=== PATIENT | female | born 1985 | race Caucasian/White ===

== ENCOUNTER 2019-01-10 20:31 | Inpatient (IN) ==
--- NOTE | 2019-01-10 21:17 | ED ---
History of Present Illness [place] [facility] Care Physician: No Primary Care Physician Chief Complaint: Contractions History of Present Illness: This 33 y/o female , EGA 38 2/7 wks present to [facility] with c/o ctxs. The ctxs started at 4 PM and have gotten stronger and closer together. +FM, No VB, No LOF. She has not had any probs during this . She has had PNC with Dr. Claros. Weeks Gestation:: 38 Para: 3 : 5 Review of Systems All other systems reviewed negative except as stated in HPI PMFSH - History History Provided By: Patient - Medical / Surgical Hx Neg / Unobtainable Medical Problems Denied: Yes Surgical History: No Previous Surgery - Social History I have reviewed the patient's Social History: Yes - Tobacco History Smoking Status: Never smoker - Alcohol History How Often Do You Have a Drink Containing Alcohol: Never - Substance Use History Substance History: No History of Abuse - Travel History History of Recent Travel: Yes (Went to [place] in October 2018) Recent Travel in the [facility] Within the Last 8 Weeks: No Recent Travel Out of the Country Within the Last 8 Weeks: Yes - Immunization History Tetanus Immunization: Unsure Medications and Allergies Allergies Allergy/AdvReac Type Severity Reaction Status Date / Time No Known Drug Allergies Allergy Unknown n/a Verified 01/10/19 21:04 Home Medications Medication Instructions Recorded Confirmed Type PNV cmb#95-ferrous fumarate-FA 1 tab PO DAILY 01/10/19 01/10/19 History [] Exam Vital signs: Vital Signs 01/10/19 20:50 01/10/19 20:54 Temperature 97.4 F L Pulse Rate 68 Respiratory Rate 16 Blood Pressure 127/82 Intake & Output 01/10/19 01/10/19 01/11/19 06:59 18:59 06:59 Weight 197 kg Narrative: GENERAL: Well-nourished, well-developed patient. SKIN: Warm and dry. HEAD: Normocephalic and atraumatic. EYES: No scleral icterus. No injection or drainage. ENT: No nasal drainage noted. Mucous membranes pink. Airway patent. NECK: Supple, trachea midline. No JVD. CARDIOVASCULAR: Regular rate and rhythm without murmurs, gallops, or rubs. RESPIRATORY: Breath sounds equal bilaterally. No accessory muscle use. ABDOMEN/GI: Abdomen soft, non-tender, bowel sounds present, no rebound, no guarding Gravid GENITOURINARY: External Genitalia: intact and normal in appearance BUS glands: [normal] Cervix: [post] Dilatation: [3-4] Effacement: [60] Station: [-2] Presentation: [vtx] Membranes: [intact] Uterine Contractions: [every 3-4 min] FHT's: Category: [1] Baseline: [130] Reactive: [Yes] Variability: [Mod] Decels: [None] +Accels EXTREMITIES: No cyanosis or edema. BACK: Nontender without obvious deformity. No CVA tenderness. NEUROLOGICAL: Awake and alert. Motor and sensory grossly within normal limits. Five out of 5 muscle strength in all muscle groups. Normal speech. Results - Labs Group B Strep: Negative Assessment and Plan - Diagnosis (1) Uterine contractions during Code(s): O62.2 - Other uterine inertia Status: Acute (2) Multigravida of advanced maternal age in third trimester Code(s): O09.523 - Supervision of elderly multigravida, third trimester Status : Acute (3) 38 weeks gestation of Code(s): Z3A.38 - 38 weeks gestation of Status: Acute - Plan Recheck cervix in 1-2 hrs 22:08- Cervix changed. Now 4/70/-2, mid position. Hx rapid labor. Would like to walk. Does not want epidural. FHTs Cat 1, reactive. Discussed with Dr. Cr who is squadron worker for Dr. Claros. Discharge Plan - Physicians Team ED Provider: Alice Bryant Primary Care Provider: Primary Care Physici,Taniya - Rxs /Orders / Referrals /Forms Prescriptions: No Action PNV cmb#95-ferrous fumarate-FA [] 28 mg iron- 800 mcg Tablet 1 tab PO DAILY - Discharge Instructions Print Language: Rwandan
[2019-01-10] MEDS ORDERED: fentaNYL Citrate Inj 100 MCG/2 ML Ampul IV.PUSH PRN ×2 (22:11)
[2019-01-10] MEDS ORDERED: Oxytocin 30 Units/500ml Premix 30 UNITS/500 ML BAG IV.SIG ONE (22:11)
[2019-01-10] MEDS ORDERED: Sod Chloride 0.9% Inj 1,000 ML IV.CONT PRN (22:11)
[2019-01-10] MEDS ORDERED: Sodium Chlor 0.9% Inj 500 ML IV.SIG PRN (22:11)
[2019-01-10] MEDS ORDERED: Naloxone Inj 0.4 MG/ML Vial IV.PUSH PRN (22:11)
--- NOTE | 2019-01-10 22:14 | P.HPOB ---
Patient Name: Joana Babcock Date of : 81 Patient Status: Inpatient Attending Provider: Nel Claros Date: 01/10/19 21:12 Initialization Date: 01/10/19 21:12 History of Present Illness Service: [facility] [place] Primary Care Physician: No Primary Care Physician Chief Complaint: Contractions History of Present Illness: This 33 y/o female , EGA 38 2/7 wks present to [facility] with c/o ctxs. The ctxs started at 4 PM and have gotten stronger and closer together. +FM, No VB, No LOF. She has not had any probs during this . She has had PNC with Dr. Claros. Weeks Gestation:: 38 Para: 3 : 5 Review of Systems All other systems reviewed negative except as stated in HPI PMFSH - History History Provided By: Patient - Medical / Surgical Hx Neg / Unobtainable Medical Problems Denied: Yes Surgical History: No Previous Surgery - Social History I have reviewed the patient's Social History: Yes - Tobacco History Smoking Status: Never smoker - Alcohol History How Often Do You Have a Drink Containing Alcohol: Never - Substance Use History Substance History: No History of Abuse - Travel History History of Recent Travel: Yes (Went to [place] in October 2018) Recent Travel in the [facility] Within the Last 8 Weeks: No Recent Travel Out of the Country Within the Last 8 Weeks: Yes - Immunization History Tetanus Immunization: Unsure Medications and Allergies Allergies Allergy/AdvReac Type Severity Reaction Status Date / Time No Known Drug Allergies Allergy Unknown n/a Verified 01/10/19 21:04 Home Medications Medication Instructions Recorded Confirmed Type PNV cmb#95-ferrous fumarate-FA 1 tab PO DAILY 01/10/19 01/10/19 History [] Exam Vital signs: Vital Signs 01/10/19 20:50 01/10/19 20:54 Temperature 97.4 F L Pulse Rate 68 Respiratory Rate 16 Blood Pressure 127/82 Intake & Output 01/10/19 01/10/19 01/11/19 06:59 18:59 06:59 Weight 197 kg Narrative: GENERAL: Well-nourished, well-developed patient. SKIN: Warm and dry. HEAD: Normocephalic and atraumatic. EYES: No scleral icterus. No injection or drainage. ENT: No nasal drainage noted. Mucous membranes pink. Airway patent. NECK: Supple, trachea midline. No JVD. CARDIOVASCULAR: Regular rate and rhythm without murmurs, gallops, or rubs. RESPIRATORY: Breath sounds equal bilaterally. No accessory muscle use. ABDOMEN/GI: Abdomen soft, non-tender, bowel sounds present, no rebound, no guarding Gravid GENITOURINARY: External Genitalia: intact and normal in appearance BUS glands: [normal] Cervix: [Mid] Dilatation: [4] Effacement: [70] Station: [-2] Presentation: [vtx] Membranes: [intact] Uterine Contractions: [every 2-4 min] FHT's: Category: [1] Baseline: [130] Reactive: [Yes] Variability: [Mod] Decels: [None] +Accels EXTREMITIES: No cyanosis or edema. BACK: Nontender without obvious deformity. No CVA tenderness. NEUROLOGICAL: Awake and alert. Motor and sensory grossly within normal limits. Five out of 5 muscle strength in all muscle groups. Normal speech. Results - Labs Group B Strep: Negative Assessment and Plan - Diagnosis (1) Uterine contractions during Code(s): O62.2 - Other uterine inertia Status: Acute (2) Multigravida of advanced maternal age in third trimester Code(s): O09.523 - Supervision of elderly multigravida, third trimester Status : Acute (3) 38 weeks gestation of Code(s): Z3A.38 - 38 weeks gestation of Status: Acute - Plan Admit for labor Discharge Plan - Physicians Team ED Provider: Alice Bryant Primary Care Provider: Primary Care Taniya Solares - Rxs /Orders / Referrals /Forms Prescriptions: No Action PNV cmb#95-ferrous fumarate-FA [] 28 mg iron- 800 mcg Tablet 1 tab PO DAILY - Discharge Instructions Print Language: Nepali
[2019-01-10] MEDS ORDERED: Citric Acid/Sodium Citrate Liq 30 ML UDC PO SCH (22:15)
[2019-01-10 22:44] LABS: Baso % (Auto) 0.4 % (0.0-2.0); Eos # (Auto) 0.1 th/mm3 (0.0-0.4); Eos % (Auto) 0.9 % (0.0-4.0); Hematocrit 37.5 % (35.0-46.0); Hemoglobin 12.8 gm/dL (11.6-15.3); Lymph # (Auto) 2.2 th/mm3 (1.0-4.8); Lymph % (Auto) 22.8 % (9.0-44.0); Mean Corpuscular Hemoglobin 28.5 pg (27.0-34.0); Mean Corpuscular Volume 83.8 fL (80.0-100.0); Mean Platelet Volume 10.4 fL (7.0-11.0); Mono # (Auto) 0.8 th/mm3 (0.0-0.9); Mono % (Auto) 7.8 % (0.0-8.0); Neut # (Auto) 6.6 th/mm3 (1.8-7.7); Neut % (Auto) 68.1 % (16.0-70.0); Platelet Count 186 th/mm3 (150-450); Red Blood Count 4.48 mil/mm3 (4.00-5.30); Red Cell Distribution Width 14.9 % (11.6-17.2); White Blood Count 9.7 th/mm3 (4.0-11.0)
[2019-01-10 22:51] LABS: Bacteria,Urine Rare /hpf; Bilirubin,Urine Negative (Negative); Clarity,Urine Hazy (Clear); Color,Urine Yellow (Yellw/Straw); Glucose,Urine (UA) Negative (Negative); Hyaline Casts,Urine 1 /lpf (0-3); Leukocyte Esterase,Urine Large (Negative); Nitrite,Urine Negative (Negative); Specific Gravity,Urine 1.005 (1.002-1.035); Squamous Epithelial Cell,Urine 10 /hpf (0-5)
[2019-01-11] MEDS ORDERED: Lidocaine 1% Inj 50 ML Vial ONE (00:33)
--- NOTE | 2019-01-11 02:41 | P.OBLABOR ---
Subjective Interval history: walking in her room with her family fourth child first at [place] no leaking or bleeding regular contractions Objective Vital Signs: Vital Signs - 8 hr 01/10/19 20:50 01/10/19 20:54 01/10/19 22:00 Temperature 97.4 F L Pulse Rate 68 Respiratory Rate 16 16 Blood Pressure 127/82 01/10/19 22:21 01/10/19 23:10 01/11/19 00:00 Temperature 97.8 F Pulse Rate 69 Respiratory Rate 16 16 Blood Pressure 123/72 01/11/19 01:00 01/11/19 01:30 Temperature Pulse Rate Respiratory Rate 16 16 Blood Pressure Objective: Pelvic Exam: %/02 efw 7 arom clear infant brought down carefully onto cervix strip category one Patient Started Active Labor: Yes Medical Induction of Labor: No Artificial Rupture of Membrane: Yes Artificial ROM Date: 01/11/19 Artificial ROM Time: 02:40 Assessment and Plan - Diagnosis (1) Multigravida of advanced maternal age in third trimester Code(s): O09.523 - Supervision of elderly multigravida, third trimester Status : Acute (2) 38 weeks gestation of Code(s): Z3A.38 - 38 weeks gestation of Status: Acute - Plan Recheck cervix in 1-2 hrs 22:08- Cervix changed. Now /-2, mid position. Hx rapid labor. Would like to walk. Does not want epidural. FHTs Cat 1, reactive. Discussed with Dr. Cr who is glue bone crusher for Dr. Claros. 01/11/19 2;40 am anticipate very soon
[2019-01-11] MEDS ORDERED: Benzocaine 20% Top Spray 60 ML Can TOPICAL PRN (03:12)
[2019-01-11] MEDS ORDERED: Oxytocin 30 Units/500ml Premix 30 UNITS/500 ML BAG IV.CONT PRN (03:12)
[2019-01-11] MEDS ORDERED: Bisacodyl 10 MG Supp RECTAL PRN (03:12)
[2019-01-11] MEDS ORDERED: Acetaminophen 325 MG Tablet PO PRN (03:12)
[2019-01-11] MEDS ORDERED: Zolpidem Tartrate 5 MG Tablet PO PRN (03:12)
[2019-01-11] MEDS ORDERED: Witch Hazel 50%/Glyderin 12.5% 40 Pad Jar RECTAL PRN (03:12)
[2019-01-11] MEDS ORDERED: Naloxone Inj 0.4 MG/ML Vial IV.PUSH PRN (03:12)
--- NOTE | 2019-01-11 03:12 | P.OBDELI ---
Weeks Gestation: 38 Patient Started Active Labor: Yes Medical Induction of Labor: No Artificial Rupture of Membrane: Yes Anesthesia: None Episiotomy: none Vaginal Delivery: Normal Presentation: Occiput anterior Nuchal Cord: None Delayed Cord Clamping (45 sec): Yes Placenta: Spontaneous delivery, Intact, 3 vessel cord Laceration: None Estimated blood loss (mL): 100 Infant: Male Male A Delivery Date: 01/11/19 Delivery Time: 03:12 score (1 min): 9 score (5 min): 9
[2019-01-11] MEDS: Senna/Docusate Sodium 8.6/50 MG Tablet PO SCH ×2 (08:57→20:14)
--- NOTE | 2019-01-11 09:35 | P.PNOB ---
Subjective Post day: 1 Interval history: doing well, scant vaginal bleeding , pain controlled Objective Vital Signs/I&O: Vital Signs 01/10/19 20:50 01/10/19 20:54 01/10/19 22:00 Temperature 97.4 F L Pulse Rate 68 Respiratory Rate 16 16 Blood Pressure 127/82 01/10/19 22:21 01/10/19 23:10 01/11/19 00:00 Temperature 97.8 F Pulse Rate 69 Respiratory Rate 16 16 Blood Pressure 123/72 01/11/19 01:00 01/11/19 01:30 01/11/19 02:38 Temperature Pulse Rate 67 Respiratory Rate 16 16 16 Blood Pressure 120/77 01/11/19 03:16 01/11/19 03:24 01/11/19 03:37 Temperature Pulse Rate 61 Respiratory Rate 18 18 Blood Pressure 137/76 01/11/19 03:40 01/11/19 04:37 01/11/19 08:00 Temperature 98.4 F 98.0 F Pulse Rate 57 L 57 L Respiratory Rate 18 16 Blood Pressure 121/73 105/59 L 101/61 Intake & Output 01/10/19 01/11/19 01/11/19 18:59 06:59 18:59 Weight 87.09 kg Other: Weight On Admission 87.09 kg Result Diagrams: 01/10/19 22:25 Objective Remarks: GENERAL: Well-nourished, well-developed patient. CARDIOVASCULAR: Regular rate and rhythm without murmurs, gallops, or rubs. RESPIRATORY: Breath sounds equal bilaterally. No accessory muscle use. ABDOMEN/GI: Abdomen soft, non-tender. Fundus: Firm, non-tender at umbilicus. GENITOURINARY: Light to moderate bleeding. EXTREMITIES: No cyanosis or edema, non-tender, without signs of DVT. Medications and IVs: Active Medications Acetaminophen (Tylenol) 650 mg PO Q4H PRN PRN Reason: PAIN SCALE 1 TO 2 Al Hydroxide/Mg Hydroxide (Milk Of Magnesia Liq) 30 ml PO Q12H PRN PRN Reason: Mild Constipation Benzocaine (Americaine 20% Top [place]) 1 spray TOPICAL Q4H PRN PRN Reason: For Perineum Discomfort Last Admin: 01/11/19 05:25 Dose: 1 spray Bisacodyl (Dulcolax Supp) 10 mg RECTAL DAILY PRN PRN Reason: SEVERE CONSITIPATION Citric Acid/Sodium Citrate (Sodium Citrate/Citric Acid Liq) 30 ml PO ROOM ATTENDANT [facility] Stop: 01/14/19 22:14 Diphtheria/Pertussis/Tetanus Vacc (Boostrix Vaccine Inj) 0.5 ml IM .ONCE ONE Stop: 01/11/19 16:01 Fentanyl Citrate (Fentanyl Inj) 50 mcg IV.PUSH Q1H PRN PRN Reason: Pain Scale 3 - 5 Fentanyl Citrate (Fentanyl Inj) 100 mcg IV.PUSH Q1H PRN PRN Reason: PAIN SCALE 6 TO 10 Lactated Ringer's (Lr 1000 Ml Inj) 1,000 mls @ 3,000 mls/hr IV.SIG UNSCH PRN PRN Reason: compromise or epidural Lactated Ringer's (Lr 1000 Ml Inj) 1,000 mls @ 125 mls/hr IV.CONT .Q8H [facility] Last Admin: 01/10/19 22:26 Dose: 125 mls/hr Sodium Chloride (Ns Inj) 1,000 mls @ 100 mls/hr IV.CONT .Q10H PRN PRN Reason: SEE LABEL COMMENTS Sodium Chloride (Ns Inj) 500 mls @ 1,000 mls/hr IV.SIG UNSCH PRN PRN Reason: SEE LABEL COMMENTS Oxytocin (Pitocin 30 Units/Ns 500 Ml Premix) 30 units in 500 mls @ 100 mls/hr IV.CONT UNSCH PRN PRN Reason: Heavy bleeding Ibuprofen (Motrin) 800 mg PO Q8H PRN PRN Reason: For Cramping Lactulose (Lactulose Liq) 30 ml PO DAILY PRN PRN Reason: SEVERE CONSITIPATION Lidocaine HCl (Xylocaine 1% Inj) 0.1 ml I-DERMAL PRN PRN PRN Reason: For IV start Stop: 01/13/19 22:10 Lidocaine HCl (Xylocaine 1% Inj) 10 ml INFILTRATN PRN PRN PRN Reason: For episiotomy repair Stop: 01/12/19 22:10 Measles/Mumps/Rubella Vaccine Live (M-M-R Ii Vaccine Inj) 0.5 ml SQ .ONCE ONE Stop: 01/11/19 16:01 Mineral Oil (Muri-Lube Oil) 10 ml TOPICAL PRN PRN PRN Reason: PRN perineal massage Naloxone HCl (Narcan Inj) 0.1 mg IV.PUSH Q2M PRN PRN Reason: for opiate reversal Naloxone HCl (Narcan Inj) 0.1 mg IV.PUSH Q2M PRN PRN Reason: for opiate reversal Ondansetron HCl (Zofran Inj) 4 mg IV.PUSH Q6H PRN PRN Reason: NAUSEA OR VOMITING Ondansetron HCl (Zofran Odt) 4 mg PO Q6H PRN PRN Reason: NAUSEA OR VOMITING Senna/Docusate Sodium (Joann-Colace) 1 tab PO BID [facility] Last Admin: 01/11/19 08:57 Dose: 1 tab Sennosides (Senokot) 17.2 mg PO Q12H PRN PRN Reason: Moderate Constipation Sodium Chloride (Ns Flush) 2 ml IV.FLUSH BID EDIS Sodium Chloride (Ns Flush) 2 ml IV.FLUSH PRN PRN PRN Reason: FLUSH AFTER USING IV ACCESS Witch Dorothy/Glycerin (Tucks Pads) 1 applicatio RECTAL QID PRN PRN Reason: HEMORRHOIDS Last Admin: 01/11/19 05:25 Dose: 1 applicatio Zolpidem Tartrate (Ambien) 5 mg PO HS PRN PRN Reason: SLEEP Assessment and Plan - Diagnosis (1) Multigravida of advanced maternal age in third trimester Code(s): O09.523 - Supervision of elderly multigravida, third trimester Status : Acute (2) 38 weeks gestation of Code(s): Z3A.38 - 38 weeks gestation of Status: Acute - Plan 33 yo s/p at 38w2d 1. PPD #0: AF, VSS, continue routine care, likely d/c home tomorrow - Male , does not desire circ.
[2019-01-11] MEDS ORDERED: Diphtheria/Tetanus/Pertussis Vaccine Inj 0.5 ML Syringe IM ONE (16:00)
[2019-01-11] MEDS ORDERED: Measles/Mumps/Rubella Vaccine Inj 0.5 ML Vial SQ ONE (16:00)
--- NOTE | 2019-01-12 05:15 | P.PNOB ---
Subjective Post day: 1 Interval history: no changes from yesterday Objective Vital Signs/I&O: Vital Signs 01/11/19 08:00 01/11/19 20:00 Temperature 98.0 F 98.1 F Pulse Rate 57 L 65 Respiratory Rate 16 18 Blood Pressure 101/61 116/72 Intake & Output 01/11/19 01/11/19 01/12/19 06:59 18:59 06:59 Weight 87.09 kg Other: Weight On Admission 87.09 kg Result Diagrams: 01/10/19 22:25 Objective Remarks: GENERAL: Well-nourished, well-developed patient. CARDIOVASCULAR: Regular rate and rhythm without murmurs, gallops, or rubs. RESPIRATORY: Breath sounds equal bilaterally. No accessory muscle use. ABDOMEN/GI: Abdomen soft, non-tender. Fundus: Firm, non-tender at umbilicus. GENITOURINARY: Light to moderate bleeding. EXTREMITIES: No cyanosis or edema, non-tender, without signs of DVT. Medications and IVs: Active Medications Acetaminophen (Tylenol) 650 mg PO Q4H PRN PRN Reason: PAIN SCALE 1 TO 2 Al Hydroxide/Mg Hydroxide (Milk Of Magnesia Liq) 30 ml PO Q12H PRN PRN Reason: Mild Constipation Benzocaine (Americaine 20% Top [place]) 1 spray TOPICAL Q4H PRN PRN Reason: For Perineum Discomfort Last Admin: 01/11/19 05:25 Dose: 1 spray Bisacodyl (Dulcolax Supp) 10 mg RECTAL DAILY PRN PRN Reason: SEVERE CONSITIPATION Citric Acid/Sodium Citrate (Sodium Citrate/Citric Acid Liq) 30 ml PO SCALE AGENT [facility] Stop: 01/14/19 22:14 Fentanyl Citrate (Fentanyl Inj) 50 mcg IV.PUSH Q1H PRN PRN Reason: Pain Scale 3 - 5 Fentanyl Citrate (Fentanyl Inj) 100 mcg IV.PUSH Q1H PRN PRN Reason: PAIN SCALE 6 TO 10 Lactated Ringer's (Lr 1000 Ml Inj) 1,000 mls @ 3,000 mls/hr IV.SIG UNSCH PRN PRN Reason: compromise or epidural Lactated Ringer's (Lr 1000 Ml Inj) 1,000 mls @ 125 mls/hr IV.CONT .Q8H [facility] Last Admin: 01/11/19 06:15 Dose: Not Given Sodium Chloride (Ns Inj) 1,000 mls @ 100 mls/hr IV.CONT .Q10H PRN PRN Reason: SEE LABEL COMMENTS Sodium Chloride (Ns Inj) 500 mls @ 1,000 mls/hr IV.SIG UNSCH PRN PRN Reason: SEE LABEL COMMENTS Oxytocin (Pitocin 30 Units/Ns 500 Ml Premix) 30 units in 500 mls @ 100 mls/hr IV.CONT UNSCH PRN PRN Reason: Heavy bleeding Ibuprofen (Motrin) 800 mg PO Q8H PRN PRN Reason: For Cramping Lactulose (Lactulose Liq) 30 ml PO DAILY PRN PRN Reason: SEVERE CONSITIPATION Lidocaine HCl (Xylocaine 1% Inj) 0.1 ml I-DERMAL PRN PRN PRN Reason: For IV start Stop: 01/13/19 22:10 Lidocaine HCl (Xylocaine 1% Inj) 10 ml INFILTRATN PRN PRN PRN Reason: For episiotomy repair Stop: 01/12/19 22:10 Mineral Oil (Muri-Lube Oil) 10 ml TOPICAL PRN PRN PRN Reason: PRN perineal massage Naloxone HCl (Narcan Inj) 0.1 mg IV.PUSH Q2M PRN PRN Reason: for opiate reversal Naloxone HCl (Narcan Inj) 0.1 mg IV.PUSH Q2M PRN PRN Reason: for opiate reversal Ondansetron HCl (Zofran Inj) 4 mg IV.PUSH Q6H PRN PRN Reason: NAUSEA OR VOMITING Ondansetron HCl (Zofran Odt) 4 mg PO Q6H PRN PRN Reason: NAUSEA OR VOMITING Senna/Docusate Sodium (Joann-Colace) 1 tab PO BID [facility] Last Admin: 01/11/19 20:14 Dose: 1 tab Sennosides (Senokot) 17.2 mg PO Q12H PRN PRN Reason: Moderate Constipation Sodium Chloride (Ns Flush) 2 ml IV.FLUSH BID [facility] Last Admin: 01/11/19 20:18 Dose: Not Given Sodium Chloride (Ns Flush) 2 ml IV.FLUSH PRN PRN PRN Reason: FLUSH AFTER USING IV ACCESS Witch Dorothy/Glycerin (Tucks Pads) 1 applicatio RECTAL QID PRN PRN Reason: HEMORRHOIDS Last Admin: 01/11/19 05:25 Dose: 1 applicatio Zolpidem Tartrate (Ambien) 5 mg PO HS PRN PRN Reason: SLEEP Assessment and Plan - Diagnosis (1) Multigravida of advanced maternal age in third trimester Code(s): O09.523 - Supervision of elderly multigravida, third trimester Status : Acute (2) 38 weeks gestation of Code(s): Z3A.38 - 38 weeks gestation of Status: Acute - Plan 33 yo s/p at 38w2d 1. PPD #1: AF, VSS, continue routine care, likely d/c home today - Male , does not desire circ.
[2019-01-12] MEDS: Senna/Docusate Sodium 8.6/50 MG Tablet PO SCH ×2 (16:30→20:57)
--- NOTE | 2019-01-13 09:04 | P.PNOB ---
Subjective Post day: 2 Interval history: ready for d/c home, no changes from yesterday Objective Vital Signs/I&O: Vital Signs 01/12/19 20:00 Temperature 98.8 F Pulse Rate 75 Respiratory Rate 18 Blood Pressure 133/70 Result Diagrams: 01/10/19 22:25 Objective Remarks: GENERAL: Well-nourished, well-developed patient. CARDIOVASCULAR: Regular rate and rhythm without murmurs, gallops, or rubs. RESPIRATORY: Breath sounds equal bilaterally. No accessory muscle use. ABDOMEN/GI: Abdomen soft, non-tender. Fundus: Firm, non-tender at umbilicus. GENITOURINARY: Light to moderate bleeding. EXTREMITIES: No cyanosis or edema, non-tender, without signs of DVT. Medications and IVs: Active Medications Acetaminophen (Tylenol) 650 mg PO Q4H PRN PRN Reason: PAIN SCALE 1 TO 2 Al Hydroxide/Mg Hydroxide (Milk Of Magnesia Liq) 30 ml PO Q12H PRN PRN Reason: Mild Constipation Benzocaine (Americaine 20% Top [place]) 1 spray TOPICAL Q4H PRN PRN Reason: For Perineum Discomfort Last Admin: 01/11/19 05:25 Dose: 1 spray Bisacodyl (Dulcolax Supp) 10 mg RECTAL DAILY PRN PRN Reason: SEVERE CONSITIPATION Citric Acid/Sodium Citrate (Sodium Citrate/Citric Acid Liq) 30 ml PO PROCUREMENT TECHNICIAN [facility] Stop: 01/14/19 22:14 Fentanyl Citrate (Fentanyl Inj) 50 mcg IV.PUSH Q1H PRN PRN Reason: Pain Scale 3 - 5 Fentanyl Citrate (Fentanyl Inj) 100 mcg IV.PUSH Q1H PRN PRN Reason: PAIN SCALE 6 TO 10 Lactated Ringer's (Lr 1000 Ml Inj) 1,000 mls @ 3,000 mls/hr IV.SIG UNSCH PRN PRN Reason: compromise or epidural Lactated Ringer's (Lr 1000 Ml Inj) 1,000 mls @ 125 mls/hr IV.CONT .Q8H [facility] Last Admin: 01/11/19 06:15 Dose: Not Given Sodium Chloride (Ns Inj) 1,000 mls @ 100 mls/hr IV.CONT .Q10H PRN PRN Reason: SEE LABEL COMMENTS Sodium Chloride (Ns Inj) 500 mls @ 1,000 mls/hr IV.SIG UNSCH PRN PRN Reason: SEE LABEL COMMENTS Oxytocin (Pitocin 30 Units/Ns 500 Ml Premix) 30 units in 500 mls @ 100 mls/hr IV.CONT UNSCH PRN PRN Reason: Heavy bleeding Ibuprofen (Motrin) 800 mg PO Q8H PRN PRN Reason: For Cramping Lactulose (Lactulose Liq) 30 ml PO DAILY PRN PRN Reason: SEVERE CONSITIPATION Lidocaine HCl (Xylocaine 1% Inj) 0.1 ml I-DERMAL PRN PRN PRN Reason: For IV start Stop: 01/13/19 22:10 Mineral Oil (Muri-Lube Oil) 10 ml TOPICAL PRN PRN PRN Reason: PRN perineal massage Naloxone HCl (Narcan Inj) 0.1 mg IV.PUSH Q2M PRN PRN Reason: for opiate reversal Naloxone HCl (Narcan Inj) 0.1 mg IV.PUSH Q2M PRN PRN Reason: for opiate reversal Ondansetron HCl (Zofran Inj) 4 mg IV.PUSH Q6H PRN PRN Reason: NAUSEA OR VOMITING Ondansetron HCl (Zofran Odt) 4 mg PO Q6H PRN PRN Reason: NAUSEA OR VOMITING Senna/Docusate Sodium (Joann-Colace) 1 tab PO BID [facility] Last Admin: 01/12/19 20:57 Dose: 1 tab Sennosides (Senokot) 17.2 mg PO Q12H PRN PRN Reason: Moderate Constipation Sodium Chloride (Ns Flush) 2 ml IV.FLUSH BID [facility] Last Admin: 01/13/19 00:25 Dose: Not Given Sodium Chloride (Ns Flush) 2 ml IV.FLUSH PRN PRN PRN Reason: FLUSH AFTER USING IV ACCESS Witch Dorothy/Glycerin (Tucks Pads) 1 applicatio RECTAL QID PRN PRN Reason: HEMORRHOIDS Last Admin: 01/11/19 05:25 Dose: 1 applicatio Zolpidem Tartrate (Ambien) 5 mg PO HS PRN PRN Reason: SLEEP Assessment and Plan - Diagnosis (1) Multigravida of advanced maternal age in third trimester Code(s): O09.523 - Supervision of elderly multigravida, third trimester Status : Acute (2) 38 weeks gestation of Code(s): Z3A.38 - 38 weeks gestation of Status: Acute - Plan 33 yo s/p at 38w2d 1. PPD #2: AF, VSS, continue routine care, likely d/c home today - Male , does not desire circ.
[2019-01-13 09:23] VITALS: BP 121/67; PULSE 63; RESP 16; TEMP 98.2
== END 2019-01-13 12:40 | disposition home or self-care (01) | DRG 807 ==
LOC: HOBED 20:31 → H2E 22:02 → H1EA 01-11 04:27
PROVIDERS: ADMIT Obstetrics & Gynecology; ATTEND Obstetrics & Gynecology
CPT/HCPCS: J7120